=== PATIENT | male | born 1995 | race Caucasian/White ===

== ENCOUNTER 2017-05-04 18:53 | Emergency (ER) | payer SELFPAY ==
[2017-05-04 19:45] VITALS: BP 126/84
== END 2017-05-04 19:45 | disposition home or self-care (01) ==
LOC: ED 18:53
DX: S06.0X0A Concussion without loss of consciousness, initial encounter (principal); W01.198A Fall on same level from slipping, tripping and stumbling with subsequent striking against other object, initial encounter; Y93.E1 Activity, personal bathing and showering; Y99.8 Other external cause status; Y92.091 Bathroom in other non-institutional residence as the place of occurrence of the external cause